=== PATIENT | male | born 1955 | race Caucasian/White ===

== ENCOUNTER 2018-03-24 11:08 | Emergency (ER) | payer OTHER ==
--- NOTE | 2018-03-24 14:16 | ER ---
Nurse's Notes [facility] Name: Jennifer Guerra Age: 62 yrs Sex: Male : 1955 Arrival Date: 03/24/2018 Time: 11:13 Bed 9 Private MD: Fabiola Bess Diagnosis: Person with feared health complaint in whom no diagnosis is made Presentation: 03/24 11:19 Presenting complaint: Patient states: "I got a fish fin stuck in my hand a couple month aj1 ago. Its really small I couldn't see it to get it out, but now every time I go to grab something it gets my attention". Transition of care: patient was not received from another setting of care. Onset of symptoms was December 2017. Risk Assessment: Do you want to hurt yourself or someone else? Patient reports no desire to harm self or others. Initial Sepsis Screen: Does the patient meet any 2 criteria? No. Patient's initial sepsis screen is negative. Does the patient have a suspected source of infection? No. Patient's initial sepsis screen is negative. Care prior to arrival: None. 11:19 Method Of Arrival: Ambulatory aj1 11:19 Acuity: RICH 4 aj1 Triage Assessment: 11:20 General: Appears in no apparent distress. comfortable, Behavior is calm, cooperative, aj1 appropriate for age. Pain: Denies pain. Complains of pain in Right first web space Pain currently is 0 out of 10 on a pain scale. at worst was 10 out of 10 on a pain scale. Neuro: Level of Consciousness is awake, alert, obeys commands. Cardiovascular: Patient's skin is warm and dry. Respiratory: Airway is patent Respiratory effort is even, unlabored, Respiratory pattern is regular, symmetrical. Historical: - Allergies: 11:20 No Known Allergies; aj1 - PMHx: 11:20 Hypothyroidism; GERD; aj1 - Immunization history:: Adult Immunizations up to date. - Social history:: Smoking status: Patient/guardian denies using tobacco. - Ebola Screening: : No symptoms or risks identified at this time. Screenin:00 Abuse screen: Denies threats or abuse. Denies injuries from another. Nutritional hb screening: No deficits noted. Tuberculosis screening: No symptoms or risk factors identified. Fall Risk None identified. Assessment: 13:00 General: Appears in no apparent distress. Behavior is calm, cooperative. Pain: Pain hb currently is 10 out of 10 on a pain scale. Neuro: Level of Consciousness is awake, alert, obeys commands, Oriented to person, place, time, situation. Cardiovascular: Capillary refill < 3 seconds Patient's skin is warm and dry. Respiratory: Airway is patent Respiratory effort is even, unlabored, Respiratory pattern is regular, symmetrical. GI: No signs and/or symptoms were reported involving the gastrointestinal system. : No signs and/or symptoms were reported regarding the genitourinary system. EENT: No signs and/or symptoms were reported regarding the EENT system. Derm: Skin is intact, is healthy with good turgor. Musculoskeletal: No signs and/or symptoms reported regarding the musculoskeletal system. 14:00 Reassessment: Patient appears in no apparent distress at this time. No changes from hb previously documented assessment. Patient and/or family updated on plan of care and expected duration. Pain level reassessed. Patient is alert, oriented x 3, equal unlabored respirations, skin warm/dry/pink. Vital Signs: 11:20 BP 131 / 81; Pulse 65; Resp 18; Temp 97.8(TE); Pulse Ox 99% on R/A; Weight 99.79 kg aj1 (R); Height 5 ft. 11 in. (180.34 cm) (R); Pain 0/10; 11:20 Body Mass Index 30.68 (99.79 kg, 180.34 cm) aj1 ED Course: 11:13 Patient arrived in ED. mr 11:13 Fabiola Bess is Private Physician. mr 11:20 Triage completed. aj1 11:20 Arm band placed on Patient placed in waiting room, Patient notified of wait time. aj1 12:51 Terra Mcmahon F[facility]-C [facility]. kb 12:51 Fredy Singleton MD is Attending Physician. kb 13:00 Patient has correct armband on for positive identification. Bed in low position. Call hb light in reach. Side rails up X 1. 13:17 X-ray completed. Portable x-ray completed in exam room. Patient tolerated procedure mh1 well. 13:18 Hand Right 3 View XRAY In Process Unspecified. EDMS 14:00 No provider procedures requiring assistance completed. Patient did not have IV access hb during this emergency room visit. Administered Medications: No medications were administered Outcome: 14:00 Discharged to home ambulatory. hb 14:00 Condition: stable 14:00 Discharge instructions given to patient, Instructed on discharge instructions, follow up and referral plans. Demonstrated understanding of instructions, follow-up care. 14:16 Discharge ordered by . dimitris 14:28 Patient left the ED. hb Signatures: Dispatcher [employer] EDMS Terra Mcmahon, LILIANC SARA-Gia Wang, RN RN 1 Nathaly Echols [facility] Briana Covarrubias RN RN hb
--- NOTE | 2018-03-24 14:17 | EDPHYS ---
Physician Documentation [facility] Name: Jennifer Guerra Age: 62 yrs Sex: Male : 1955 Arrival Date: 03/24/2018 Time: 11:13 Bed 9 Private MD: Fabiola Bess ED Physician Fredy Singleton HPI: 03/24 14:18 This 62 yrs old Male presents to ER via Ambulatory with complaints of fish kb fin in hand. 14:18 The patient or guardian reports the patient has a suspected foreign body, of the right kb hand. The reported likely foreign body is catfish fin. Onset: The symptoms/episode began/occurred 2 month(s) ago. Current symptoms: foreign body sensation. Treatment Prior to Arrival: none. The patient has not experienced similar symptoms in the past. The patient has not recently seen a physician. Historical: - Allergies: 11:20 No Known Allergies; aj1 - PMHx: 11:20 Hypothyroidism; GERD; aj1 - Immunization history:: Adult Immunizations up to date. - Social history:: Smoking status: Patient/guardian denies using tobacco. - Ebola Screening: : No symptoms or risks identified at this time. ROS: 14:17 Constitutional: Negative for fever, chills, and weight loss, Cardiovascular: Negative kb for chest pain, palpitations, and edema, Respiratory: Negative for shortness of breath, cough, wheezing, and pleuritic chest pain, Abdomen/GI: Negative for abdominal pain, nausea, vomiting, diarrhea, and constipation, Back: Negative for injury and pain, Neuro: Negative for headache, weakness, numbness, tingling, and seizure. 14:17 MS/extremity: Positive for of the Right first web space, first web space. Exam: 14:18 Constitutional: This is a well developed, well nourished patient who is awake, alert, kb and in no acute distress. Head/Face: Normocephalic, atraumatic. ENT: Nares patent. No nasal discharge, no septal abnormalities noted. Tympanic membranes are normal and external auditory canals are clear. Oropharynx with no redness, swelling, or masses, exudates, or evidence of obstruction, uvula midline. Mucous membranes moist. Neck: Trachea midline, no thyromegaly or masses palpated, and no cervical lymphadenopathy. Supple, full range of motion without nuchal rigidity, or vertebral point tenderness. No Meningismus. Chest/axilla: Normal chest wall appearance and motion. Nontender with no deformity. No lesions are appreciated. Cardiovascular: Regular rate and rhythm with a normal S1 and S2. No gallops, murmurs, or rubs. Normal PMI, no JVD. No pulse deficits. Respiratory: Lungs have equal breath sounds bilaterally, clear to auscultation and percussion. No rales, rhonchi or wheezes noted. No increased work of breathing, no retractions or nasal flaring. Abdomen/GI: Soft, non-tender, with normal bowel sounds. No distension or tympany. No guarding or rebound. No evidence of tenderness throughout. Back: No spinal tenderness. No costovertebral tenderness. Full range of motion. Skin: Warm, dry with normal turgor. Normal color with no rashes, no lesions, and no evidence of cellulitis. MS/ Extremity: Pulses equal, no cyanosis. Neurovascular intact. Full, normal range of motion. Neuro: Awake and alert, GCS 15, oriented to person, place, time, and situation. Cranial nerves II-XII grossly intact. Motor strength 5/5 in all extremities. Sensory grossly intact. Cerebellar exam normal. Normal gait. Vital Signs: 11:20 BP 131 / 81; Pulse 65; Resp 18; Temp 97.8(TE); Pulse Ox 99% on R/A; Weight 99.79 kg aj1 (R); Height 5 ft. 11 in. (180.34 cm) (R); Pain 0/10; 11:20 Body Mass Index 30.68 (99.79 kg, 180.34 cm) aj1 MDM: 12:51 Patient medically screened. kb 14:18 Data reviewed: vital signs, nurses notes. Data interpreted: Pulse oximetry: on room air kb is 99 %. Interpretation: normal. Counseling: I had a detailed discussion with the patient and/or guardian regarding: the historical points, exam findings, and any diagnostic results supporting the discharge/admit diagnosis, radiology results, the need for outpatient follow up, a hand specialist, to return to the emergency department if symptoms worsen or persist or if there are any questions or concerns that arise at home. 03/24 12:54 Order name: Hand Right 3 View XRAY kb Administered Medications: No medications were administered Disposition: 16:10 Co-signature as Attending Physician, Fredy Singleton MD I agree with the assessment and kdr plan of care. Disposition: 03/24/18 14:16 Discharged to Home. Impression: Person with feared health complaint in whom no diagnosis is made. - Condition is Stable. - Discharge Instructions: Foreign Body. - Medication Reconciliation Form, Thank You Letter, Antibiotic Education, Prescription Opioid Use form. - Follow up: Emergency Department; When: As needed; Reason: Worsening of condition. Follow up: Private Physician; When: 2 - 3 days; Reason: Recheck today's complaints, Continuance of care, Re-evaluation by your physician. Signatures: Dispatcher [employer] EDMS Terra Mcmahon, SARA-C [employer]-Gia Wang RN RN aj1 Fredy Singleton MD MD kdr Briana Covarrubias RN RN hb Corrections: (The following items were deleted from the chart) 14:28 14:16 03/24/2018 14:16 Discharged to Home. Impression: Person with feared health hb complaint in whom no diagnosis is made. Condition is Stable. Forms are Medication Reconciliation Form, Thank You Letter, Antibiotic Education, Prescription Opioid Use. Follow up: Emergency Department; When: As needed; Reason: Worsening of condition. Follow up: Private Physician; When: 2 - 3 days; Reason: Recheck today's complaints, Continuance of care, Re-evaluation by your physician. kb
--- NOTE | 2018-03-24 14:29 | RAD REPORT ---
EXAM DESCRIPTION: RAD - Hand Right 3 View - 03/24/2018 1:18 pm CLINICAL HISTORY: Hand pain, possible retained foreign body COMPARISON: None. FINDINGS: No fracture is identified. There is no dislocation or periosteal reaction noted. IP joint space narrowing seen. Spurring changes are present at the IP joints most notable at the second DIP j oint. Mild degenerative changes are present at the first MCP joint and at the trapezial first metacar pal articulation. Degenerative cysts are present in the capitate bone. Clinical concern was possible foreign body. Notation indicates area of concern was near the first metacarpal. On this examination t here is no retained foreign body identifiable. No calcification or air in the soft tissues. IMPRESSION: No retained foreign body seen. No air or calcification of the soft tissues. Degenerative changes are present as detailed. No acute bone or joint finding identifiable.
== END 2018-03-24 14:28 | disposition home or self-care (01) ==
LOC: ER 11:08
DX: Z71.1 Person with feared health complaint in whom no diagnosis is made (principal)
CPT/HCPCS: 99283